=== PATIENT | female | born 1990 | race Caucasian/White ===

== ENCOUNTER 2016-09-05 03:19 | Emergency (ER) | payer SELFPAY ==
[~2016-09-05] VITALS: Ht 154.9 cm; Wt 47.9 kg
[2016-09-05 03:20] VITALS: BP 142/93
== END 2016-09-05 04:01 | disposition home or self-care (01) ==
LOC: ED 03:55
DX: L03.211 Cellulitis of face (principal)
CPT/HCPCS: 99283

== ENCOUNTER 2016-09-06 12:45 | Emergency (ER) | payer SELFPAY ==
[~2016-09-06] VITALS: Ht 154.9 cm; Wt 47.3 kg
[2016-09-06 12:56] VITALS: BP 110/62
[2016-09-06] MEDS ORDERED: CEFAZOLIN 1,000 MG ONE (13:57)
[2016-09-06] MEDS ORDERED: CEFAZOLIN 1,000 MG IM ONE (14:00)
== END 2016-09-06 14:11 | disposition home or self-care (01) ==
LOC: ED 14:05
DX: L02.811 Cutaneous abscess of head [any part, except face] (principal); H69.81 Other specified disorders of Eustachian tube, right ear; F12.10 Cannabis abuse, uncomplicated
CPT/HCPCS: 96372; 99283; J0690

== ENCOUNTER 2016-12-30 08:40 | Emergency (ER) | payer MEDICAID ==
[~2016-12-30] VITALS: Ht 154.9 cm; Wt 52.0 kg
[2016-12-30 08:41] VITALS: BP 116/70
[2016-12-30] MEDS ORDERED: CEPHALEXIN 250 MG/5 ML, ORAL SUSP PO ONE (09:30)
[2016-12-30] MEDS ORDERED: SULFAMETH./TRIMETHOPRIM DS 800MG/160MG TABLET ONE (09:30)
[2016-12-30] MEDS ORDERED: CEPHALEXIN 500 MG CAPSULE ONE (09:30)
[2016-12-30] MEDS ORDERED: SULFAMETH./TRIMETHOPRIM DS 800MG/160MG TABLET PO ONE (09:30)
== END 2016-12-30 09:39 | disposition home or self-care (01) ==
LOC: ED 09:22
DX: L02.811 Cutaneous abscess of head [any part, except face] (principal)
CPT/HCPCS: 99283

== ENCOUNTER 2017-11-27 10:57 | Emergency (ER) | payer MEDICAID ==
[~2017-11-27] VITALS: Ht 154.9 cm; Wt 57.8 kg
[2017-11-27 11:01] VITALS: BP 125/74
[2017-11-27] MEDS ORDERED: DEXAMETHASONE 4 MG/ML, 1ML PO ONE (12:00)
[2017-11-27] MEDS ORDERED: DEXAMETHASONE 4 MG TABLET ONE ×2 (12:01→12:02)
== END 2017-11-27 12:35 | disposition home or self-care (01) ==
LOC: ED 11:56
DX: J02.0 Streptococcal pharyngitis (principal); F17.200 Nicotine dependence, unspecified, uncomplicated
CPT/HCPCS: 99283; J1100

== ENCOUNTER 2018-06-24 12:19 | Emergency (ER) | payer MEDICAID ==
[~2018-06-24] VITALS: Ht 154.9 cm; Wt 64.7 kg
[2018-06-24 12:27] VITALS: BP 130/85
== END 2018-06-24 13:00 | disposition home or self-care (01) ==
LOC: ED 12:53
DX: K08.89 Other specified disorders of teeth and supporting structures (principal)
CPT/HCPCS: 99283

== ENCOUNTER 2019-05-28 12:18 | Emergency (ER) | payer MEDICAID ==
[~2019-05-28] VITALS: Ht 154.9 cm; Wt 65.3 kg
[2019-05-28 12:41] VITALS: BP 115/52
== END 2019-05-28 13:36 | disposition home or self-care (01) ==
LOC: ED 13:31
DX: K02.9 Dental caries, unspecified (principal); K08.89 Other specified disorders of teeth and supporting structures
CPT/HCPCS: 99283